=== PATIENT | male | born 1975 | race American Indian/Alaskan Native ===

== ENCOUNTER 2019-06-28 09:26 | Day surgery (SDC) | payer OTHER ==
[2019-06-28] MEDS ORDERED: fentaNYL 100 MCG/2 ML INJ IV PRN (10:19)
--- NOTE | 2019-06-28 10:19 | Anesthesia Day of Surgery ---
Anesthesia Day of Surgery - Day of Surgery Patient Examined: Yes Patient H&P Reviewed: Yes Patient is NPO: Yes
--- NOTE | 2019-06-28 10:19 | Anesthesia Consultation ---
Anesthesia Consult and Med Hx Date of service: 06/28/19 - Airway Anesthetic Teeth Evaluation: Good ROM Head & Neck: Adequate Mental/Hyoid Distance: Adequate Mallampati Class: Class III Intubation Access Assessment: Possibly Difficult - Pulmonary Exam CTA: Yes - Cardiac Exam Cardiac Exam: RRR - Pre-Operative Health Status ASA Pre-Surgery Classification: ASA2 Proposed Anesthetic Plan: General - Pulmonary Hx Smoking: Yes (1/2PPD) Hx Respiratory Symptoms: No - Cardiovascular System Hx Hypertension: No Hx Heart Attack/AMI: No - Central Nervous System CVA: No - Gastrointestinal Hx Gastroesophageal Reflux Disease: No - Endocrine Hx Renal Disease: No (kidney stones) Hx Liver Disease: No Hx Insulin Dependent Diabetes: No Hx Non-Insulin Dependent Diabetes: No Hx Thyroid Disease: No - Other Systems Hx Obesity: No - Additional Comments Anesthesia Medical History Comments: No hx anesthetic complications.
[2019-06-28] MEDS ORDERED: MIDAZOLAM 2 MG/2 ML INJ IV NR (11:00)
[2019-06-28] MEDS ORDERED: LACTATED RINGERS 1,000 ML IV SCH (11:00)
[2019-06-28] MEDS ORDERED: ceFAZolin/STERILE WATER 2 GM/20 ML SYRINGE IV NR (11:00)
[2019-06-28] MEDS ORDERED: fentaNYL 100 MCG/2 ML INJ ONE (11:55)
[2019-06-28] MEDS ORDERED: PROPOFOL 200 MG/20 ML VIAL IV ONE (11:57)
[2019-06-28] MEDS ORDERED: WATER FOR IRRIG STERILE 2000 ML IR ONE (13:00)
[2019-06-28] MEDS ORDERED: FUROSEMIDE 40 MG/4 ML INJ ONE (13:12)
[2019-06-28] MEDS ORDERED: LIDOCAINE MPF (2%) 20 MG/1 ML VIAL 5 ML ONE (13:30)
[2019-06-28] MEDS ORDERED: ONDANSETRON 4 MG/2 ML INJ ONE (13:30)
[2019-06-28] MEDS ORDERED: dexAMETHasone 20 MG/5 ML VIAL ONE (13:30)
--- NOTE | 2019-06-28 14:30 | Discharge Summary ---
Short Stay Discharge Plan Activity: other (no straining ) Weight Bearing Status: Full Weight Bearing Diet: low fat, low cholesterol, low salt Special Instructions: other (inc fluids ) Durable Medical Equipment Needed Upon Discharge: other (has stent ) Follow up with: [facility] [Primary Care Provider] - 7 Days ESTHER PALACIO MD [Staff Physician] - 7 Days Forms: Outpatient Surgery DC Inst.
--- NOTE | 2019-06-28 14:30 | Post Operative Note ---
Date of procedure: 06/28/19 Pre-op diagnosis: r ureteralm stone Post-op diagnosis: same Findings: stone Procedure: cysto r ureteroscopy stent laser Anesthesia: GETA Surgeon: ESTHER PALACIO Estimated blood loss: none Pathology: list (stone) Specimen disposition: given to patient/family Condition: stable Disposition: PACU
[2019-06-28 15:21] VITALS: BP 124/80
--- NOTE | 2019-06-28 16:00 | Post Anesthesia Evaluation ---
- Post Anesthesia Evaluation Patient Participated: Yes Airway Patent: Yes Stable Respiratory Function: Yes Nausea/Vomiting: No Temp > 96.8F: Yes Pain Manageable: Yes Adequeate Hydration: Yes Anesthesia Complications: No
--- NOTE | 2019-06-28 16:14 | XRay Report ---
ABDOMEN 1 VIEW(S) INDICATION / CLINICAL INFORMATION: RT URETERAL STONE. COMPARISON: None available. FINDINGS: 1 minute 44 seconds of fluoroscopy time was provided by radiology during right ureteroscopy and right ureteral stone removal by urology. 2 fluoroscopic images of the abdomen are presented. Right uretera l stent exchange was also performed. Please correlate with the procedural report as needed. Signer Name: Jose Alejandro Pratt Jr, MD Signed: 06/28/2019 4:10 PM Workstation Name: [id number]
--- NOTE | 2019-07-05 09:03 | Operative Report ---
PREOPERATIVE DIAGNOSIS: Right ureteral stone. POSTOPERATIVE DIAGNOSIS: Right ureteral stone. PROCEDURE: Cystoscopy, ureteroscopy, stone extraction. SURGEON: Dr. Rodriguez. ANESTHESIA: General. FINDINGS: This is a gentleman with a large stone, right ureter, now presents for treatment. DESCRIPTION OF PROCEDURE: The patient was brought to the operating room and placed on the operating table. Following induction of anesthesia, placed in lithotomy position, prepped and draped in usual sterile fashion. Cystourethroscopy showed a normal bladder with no bladder lesions. Retrograde showed a filling defect in the ureter, which was consistent with the stone. At this point, a wire coiled up in the kidney. The balloon dilatation was carried out and stone was extracted after it was lasered into pieces because it was too big to extract. The patient tolerated the procedure well. Stone was given to the family. No significant complications. Double J was left, brought to recovery in stable condition. This is the second dictation. First dictation did not come out. JOB# [id number] CORINE/MAYELA
== END 2019-06-28 15:10 | disposition home or self-care (01) ==
LOC: OR 09:26
PROVIDERS: ATTEND Urology
DX: N20.1 Calculus of ureter (principal); F17.210 Nicotine dependence, cigarettes, uncomplicated; Z98.890 Other specified postprocedural states
CPT/HCPCS: 52356; 74018; A4217; C1758; C1769; C2617; J0690; J1100; J1940; J2250; J2405; J2704; J3010; J7120; Q9967